=== PATIENT | female | born 1980 | race Caucasian/White ===

== ENCOUNTER 2016-10-12 00:37 | Emergency (ER) | payer OTHER ==
[~2016-10-12] VITALS: Ht 167.6 cm
[~2016-10-12 00:37] MED LIST: AURALGAN 15 ML15 ML OT; HYDROCODONE BIT1 T11 PO; OMNICEF300 MG PO; TOBRADEX 0.1%-2.5 ML OT; TYLENOL PM 5001 CAP; [UNRECOGNIZED DRUG - OTHER] OT
[2016-10-12] MEDS ORDERED: CLINDAMYCIN150 MG PO (00:48)
== END 2016-10-12 01:38 | disposition home or self-care (01) ==
LOC: ED 00:37
DX: K08.89 Other specified disorders of teeth and supporting structures (principal); Z98.51 Tubal ligation status; Z88.0 Allergy status to penicillin

== ENCOUNTER → 2017-11-03 | Outpatient (CLI) | payer OTHER ==
[~2017-11-03] MED LIST changes: +CLINDAMYCIN150 MG PO
== END | disposition home or self-care (01) ==
LOC: RAD 00:30
DX: R05 Cough (principal); R09.89 Other specified symptoms and signs involving the circulatory and respiratory systems; R06.02 Shortness of breath

== ENCOUNTER 2018-01-06 20:50 | Inpatient (IN) | payer OTHER ==
[~2018-01-06] VITALS: Ht 167.6 cm; Wt 158.8 kg
--- NOTE | ~2018-01-06 | PR ---
[place], [place] PROGRESS NOTE NAME: MILDRED NEFF UNIT #: [id number] ROOM: 528 DOCTOR: NEO BENTON MD,YARELIS BIRTHDATE: [birth year] DOS: 01/08/2018 SUBJECTIVE: The patient was noted without any acute distress at this time, comfortably resting on the bed. She was still noted with severe cough, which remains persistent and unchanged as previously. She was n.p.o. past midnight bronchoscopy. Denies any abdominal pain, nausea, vomiting, hematuria, suprapubic pain or lower back pain. Denies dizziness or headache. Remaining systems were reviewed and they were noted negative. OBJECTIVE: VITAL SIGNS: This morning, normal temperature was recorded. The respiratory rate of the patient recorded as 21-24, heart rate of 123-120 with sinus tachycardia, blood pressure 162/89-141/75. Pulse oxygen saturation of the patient was recorded as 94% saturation on 2 L nasal cannula. HEENT: Shows head was atraumatic. Eyes nonicterus. Moderate chronic obesity. CARDIOVASCULAR: S1, S2 is audible. LUNGS: Noted diffuse reduction in the breath sounds with expiratory wheezing. There were no crackles. ABDOMEN: Soft, nontender. Bowel sounds present. EXTREMITIES: Without any acute edema. VISIBLE SKIN: No lesions or rashes. MUSCULOSKELETAL SYMPTOMS: Without any acute deformities. CENTRAL NERVOUS SYSTEM: No focal deficit. LABORATORY DATA: CBC on 01/08/2018; WBC count 20.0, hemoglobin normal, hematocrit normal, platelet count 421,000. The CMP of the patient this morning; glucose 134, BUN 14, creatinine was normal. The urine culture noted no bacterial growth. IMPRESSION: 1. Ongoing severe acute exacerbation of chronic obstructive pulmonary disease/bronchial asthma. The patient with acute persistent bronchitis with nonproductive cough. 2. Chronic obesity. 3. Sinus tachycardia secondary exacerbation of chronic obstructive pulmonary disease/bronchial asthma. PLAN OF MANAGEMENT: Proceed with bronchoscopy as planned for this patient at this time. No changes in the treatment immediately will be needed. The treatment changes will be made for the patient based on the progression of the illness and after bronchoscopy as needed. Other supportive therapy, plan of management and care plan. Usual medical management and other therapies. [place], [place] PROGRESS NOTE NAME: MILDRED NEFF UNIT #: [id number] ROOM: 528 DOCTOR: YARELIS PIPER MD BIRTHDATE: [birth year] YARELIS LARSON MD CM:PNTRANS [phone] YARELIS BENTON MD 01/09/18210 interface
--- NOTE | ~2018-01-06 | PROC NOTE ---
[place], [place] PROCEDURE NOTE NAME: MILDRED NEFF UNIT #: [id number] ROOM: 528 DOCTOR: NEO BENTON MD,YARELIS BIRTHDATE: [birth year] DOS: 01/08/2018 BRONCHOSCOPY PREOPERATIVE DIAGNOSES: Severe nonresolving cough with wheezing for several weeks, the patient had current maximum medical therapy as well. POSTOPERATIVE DIAGNOSES: Severe acute bronchitis noted with diffuse inflammatory changes of the airways with redness with scattered amount of secretion removed from the endobronchial tree bilaterally. PROCEDURE DESCRIPTION: Informed consent obtained from the patient. The patient was brought to the OR and placed in a supine position. Conscious sedation administered by the Anesthesia Department. After achieving appropriate sedation, airway introduced into the mouth. Bronchoscope advanced through airway into the laryngeal area. Epiglottis and vocal cords were seen. Vocal cord moving symmetrically with movements. Bronchoscope advanced through the vocal cord into tracheal lumen. Tracheal lumen noted with diffuse inflammatory changes and redness. The yoselyn was noted sharp. Right upper, right middle, right lower, left upper, lingular lower lobe bronchi were all examined. The patient was still noticed with diffuse inflammatory changes on the airways with small amount of secretion present in the lower lobe bronchi bilaterally. The bronchial washings were taken of the endobronchial tree bilaterally ad were sent for the culture. The procedure was well tolerated by the patient without difficulty. Postoperative finding will be discussed with the patient recovers the effects of acute sedation. Based on the bronchoscopy of the patient, the patient will be started on the doxycycline 100 mg b.i.d. for coverage of the atypical organisms including the possibility of MRSA. The patient will be continued on the Rocephin as previously 1 g daily. Continue current dose of Solu-Medrol as well. YARELIS LARSON MD CM:PROCNOTE:PROCEDURE NOTE 1200 [id number] YARELIS BENTON MD
--- NOTE | ~2018-01-06 | CON ---
[place], [place] REPORT OF CONSULTATION NAME: MILDRED NEFF UNIT #: [id number] ROOM: 528 DOCTOR: YARELIS PIPER MD BIRTHDATE: [birth year] DOS: 01/07/2018 PULMONARY CONSULTATION EVALUATION. CONSULTATION REQUESTED BY: Hospitalist services. REASON FOR CONSULTATION: Assess the patient for ongoing acute respiratory symptoms. HISTORY OF PRESENT ILLNESS: A 37-year-old female patient, unknown to me, has been admitted to the hospital on 01/06/2018. The patient stated that she has been noted ill since 08/2017. She started with progressive cough, chest congestion, wheezing, and shortness of breath. The symptoms had not been improving with the previous treatment provided as an outpatient. She came into the hospital and admitted to the hospital yesterday for further medical management. The shortness of breath has been noted with mild exertion. The cough has been noted severe and remains nonproductive. Wheezing with excessive chest tightness reported. There were no symptoms of chest pain. Coughing has been noted day and night, and very excessive. The patient denies symptoms of chest trauma. REVIEW OF SYSTEMS: CONSTITUTIONAL: Fatigue and tiredness reported and symptoms of fever or chills. EYES: Denies any burning, redness, or tenderness. EARS, NOSE, THROAT SYMPTOMS: Denies sore throat, hoarseness, otalgia, postnasal drainage or epistaxis. CARDIOVASCULAR: No anginal pain, edema, pain in the lower extremities or palpitation. GASTROINTESTINAL: Dysphagia, nausea, vomiting, diarrhea, abdominal pain, hematemesis, melena, or hematochezia. SKIN: Denies abnormal lesions or rashes. MUSCULOSKELETAL: Denies any acute joint pain, redness, or tenderness. CENTRAL NERVOUS SYSTEM: Dizziness, headache, diplopia, syncopal episode, tingling sensation in the extremities. SKIN: Denies abnormal lesions or rashes. Remaining systems were reviewed with the patient, they were noted all negative. PAST MEDICAL HISTORY: 1. Gastroesophageal reflux disease. 2. Severe morbid obesity. SURGICAL HISTORY: 1. Tubal ligation. 2. Cholecystectomy. 3. Extraction of the teeth. SOCIAL HISTORY: The patient lives at home. She has not been noted any history of tobacco and alcohol or any illicit drugs. Tobacco use was noted only a few cigarettes smoked a day for several years, which were discontinued completely [place], [place] REPORT OF CONSULTATION NAME: MILDRED NEFF UNIT #: [id number] ROOM: 528 DOCTOR: NEO BENTON MD,YARELIS BIRTHDATE: [birth year] since 08/2017. FAMILY HISTORY: Noted diabetes and hypertension in the father and hypertension in the mother. HOME MEDICATIONS: Noted only use of Prilosec 20 mg daily. DRUG ALLERGIES: Reported allergies to the PENICILLIN. PHYSICAL EXAMINATION: GENERAL: This is a 37-year-old female who has been noted to be awake and alert at this time without any acute distress currently comfortably sitting on the bed. VITAL SIGNS: The patient's height was recorded by the nursing staff on current admission 5 feet 6 inches, weight of 250 pounds, BMI of 56.5. VITAL SIGNS: Shows normal temperature. The respiratory rate recorded as 20, heart rate of 107, blood pressure of 122/52. HEENT: Atraumatic. Eyes nonicterus. NECK: Supple. Severe decreased posterior pharyngeal space noted high tongue base crowding soft tissue structures. LUNGS: Diffuse expiratory wheezing noted in the lungs bilaterally, which was severe. There were no crackles heard. ABDOMEN: Soft with chronic moderate severe obesity. Bowel sounds are present. EXTREMITIES: The patient noted chronic obesity. Visible skin with no lesions or rashes. MUSCULOSKELETAL: Noted without any acute deformities. SKIN: Noted without lesions or rashes. Cranial nerves 2-12 intact. No focal deficit. LABORATORY DATA: CBC that was done on 01/06/2018 was noted as normal CBC. Lactic acid 1.7 yesterday. Arterial blood gas 01/06/2018 on admission pH of 7.36, pCO2 of 49, pO2 of 75 on 6 liter nasal cannula. PT and PTT for the patient was noted as normal. CMP that was noted as glucose 139, BUN normal, and creatinine was normal. Troponin was normal. D-dimer was normal. CBC that was done this morning still remains normal. BMP this morning, glucose 257, BUN and creatinine were normal. Chest x-ray of the patient that was done, 2-view, which was reviewed this morning was noted with a nonspecific interstitial increased marking without any acute pulmonary infiltration. Influenza A and B, nasal washing antigen both noted negative. CT scan of the chest reviewed, does not show any lymphadenopathy. Small nodular infiltration noted in the left lower lobe. Increased interstitial marking noted with the ____ in the lungs bilaterally. IMPRESSION: 1. The patient will be currently admitted to the hospital with ongoing acute exacerbation of bronchial asthma with small airway disease, bronchiolitis as well as possibility of pneumonia or rounded atelectasis and nodule noted in the left lower lobe. 2. History of chronic obesity. 3. Hyperglycemia secondary to corticosteroids. [place], [place] REPORT OF CONSULTATION NAME: MILDRED NEFF UNIT #: [id number] ROOM: 528 DOCTOR: YARELIS PIPER MD BIRTHDATE: [birth year] 4. The patient with severe morbid obesity as well. PLAN OF MANAGEMENT: The patient is currently getting bronchodilator, which we will continue 4 hours. Solu-Medrol has been currently given 80 mg hours, which will be decreased to the lower dose as the high dose would not be needed at the present time. Monitoring of the respiratory symptoms closely with progression. The patient was assessed for possible bronchoscopy, which planned to be done in the morning to help clear mucus impaction of major airways. Risk and benefits of procedure have been discussed with the patient. She was agreeable for the procedure. Bronchodilator will be given every 4 hours. Continue abstinence tobacco use was advised. Additional treatment changes will be done based on progression of the illness. The finding noted in the CT scan needs to be closely monitored until resolution. BAL specimen might be taken from the left lower lobe as well for this patient. Continue atypical coverage of organisms. Ordered the mycoplasma antibodies. Thanks for allowing me to participate in the care of this patient. YARELIS LARSON MD CM:CONSTR:REPORT OF CONSULTATION 1313 01/07/18 1602 interface
--- NOTE | ~2018-01-06 | EKG ---
[place], [place] ELECTROCARDIOGRAM REPORT NAME: MILDRED NEFF UNIT #: [id number] ROOM: 528 DOCTOR: NEO BENTON MD,YARELIS BIRTHDATE: [birth year] DOS: 01/07/2018 ELECTROCARDIOGRAM The testing was done for 01/07/2018 done at 12:50 p.m. Sinus tachycardia noted, heart rate 119 beats per minute. The electrocardiogram was noted as normal. YARELIS LARSON MD CM:EKGRPT:ELECTROCARDIOGRAM REPORT [id number] YARELIS BENTON MD
--- NOTE | ~2018-01-06 | PR ---
[place], [place] PROGRESS NOTE NAME: [facility] NEFF [id number] UNIT #: [id number] ROOM: 528 DOCTOR: NEO BENTON MD,YARELIS BIRTHDATE: [birth year] DOS: 01/09/2018 SUBJECTIVE: The patient was noted comfortable at this time, resting in the bed. She has not been reported any symptoms of chest pain or hemoptysis. Cough has been noted partially decreased after bronchoscopy. Denies symptoms of headache or diplopia. Denies symptoms of nausea or vomiting. Denies dizziness. General weakness, fatigue was noted. There were no symptoms of chills. Remaining systems were reviewed. They were noted all negative. OBJECTIVE: VITAL SIGNS: Normal temperature, respiratory rate 20, heart 94 to 142 previously. The blood pressure 117/51 to 151/82. Pulse oxygen saturation 3 liters 94% saturation. HEENT: Showed no acute change. NECK: Supple, obese. CARDIOVASCULAR SYSTEM: S1, S2 is audible. LUNGS: Noted with moderate decreased breath sounds, scattered wheezing, no crackles. ABDOMEN: Soft and obese. EXTREMITIES: Chronic obesity with skin no lesions or rashes. MUSCULOSKELETAL: Noted without any acute deformities. SKIN: Noted without lesions or rashes. LABORATORY DATA: CMP, this morning, glucose of 150, BUN and creatinine were normal. CO2 of 33. CBC: WBC count 14.3, normal hemoglobin and hematocrit, platelet count mildly elevated at 136,000. Echocardiogram that was done for the patient reviewed by the radiologist and dictated by Dr. Garcia for this patient reported as findings of normal left ventricle ejection fraction. The patient technically suboptimal images without any valvular abnormalities reported. Culture of the bronchial washing of the patient from yesterday was noted with moderate growth of gram-positive cocci, suspected MRSA. Gram stain many white blood cells, moderate epithelial cells, few gram-positive cocci in pairs, chains and clusters, few gram-negative bacilli. IMPRESSION: 1. The patient with severe acute inflammatory changes noted airway bronchoscopy with ongoing acute tracheobronchitis, possibly methicillin-resistant staphylococcus aureus would be considered. 2. The patient with chronic obesity as well. 3. The patient with tachycardia related to current acute infection subsiding as the patient started on doxycycline yesterday for methicillin-resistant staphylococcus aureus, tracheobronchitis. PLAN OF TREATMENT: Continue Rocephin at this time. Monitor final culture results. Continue bronchodilator. Other therapy, plan of management. Additional change in treatment will be made for the patient based on progression of illnesses. [place], [place] PROGRESS NOTE NAME: AISHWARYAMILDRED UNIT #: [id number] ROOM: 8 DOCTOR: YARELIS PIPER MD BIRTHDATE: [birth year] YARELIS LARSON MD CM:PNTRANS [phone] [id number] YARELIS BENTON MD 01/09/181929 interface
--- NOTE | ~2018-01-06 | PR ---
[place], [place] PROGRESS NOTE NAME: MILDRED NEFF UNIT #: [id number] ROOM: 528 DOCTOR: NEO BENTON MD,YARELIS BIRTHDATE: [birth year] DOS: 01/10/2018 SUBJECTIVE: The patient was independently seen and examined. History and physical examination performed. The available labs were reviewed. The assessment of the patient was personally made changes in the treatment was personally approved. The note done by the claim review medical director approved. Cultures of the sputum for the patient's bronchial washing was noted nonviable organism with moderate gram-positive cocci were noted. The patient has been noted resolution of the wheezing and significant improvement in the cough was noted with the history and physical examination. She could be discharged home. The patient to be followed up on tapering dose of prednisone, oral doxycycline prescription, use of short-acting bronchodilator for addition, comprehensive pulmonary assessment as an outpatient. Discharge planning was discussed with Dr. Sachin Denis for the patient with the primary care attending. YARELIS LARSON MD CM:PNTRANS [phone] YARELIS BENTON MD 01/10/18 1906 interface
--- NOTE | ~2018-01-06 | EKG ---
[place], [place] ELECTROCARDIOGRAM REPORT NAME: MILDRED NEFF UNIT #: [id number] ROOM: 528 DOCTOR: AMPARO SMITH,KIERA BIRTHDATE: [birth year] DOS: 01/07/2018 TIME: 9:08 IMPRESSION: 1. Sinus rhythm. 2. Sinus tachycardia. 3. Normal QT interval. 4. No ischemic changes. KIERA CHRISTENSEN MD CM:EKGRPT:ELECTROCARDIOGRAM REPORT [id number] KIERA CHRISTENSEN MD
--- NOTE | ~2018-01-06 | PR ---
[place], [place] PROGRESS NOTE NAME: MILDRED NEFF UNIT #: [id number] ROOM: 528 DOCTOR: PRIYANKA RAO DO BIRTHDATE: [birth year] DOS: 01/10/2018 SUBJECTIVE: The patient is feeling very well at this time. She notes a near complete resolution of her respiratory symptoms and feels she is very nearly at her baseline. She has no complaints. She denies any chest pain, shortness of breath, nausea, vomiting, diarrhea, constipation, lightheadedness, dizziness or any other symptoms at this time. OBJECTIVE: VITAL SIGNS: At time of exam, temperature 98.2, pulse 93, respiratory rate 20, blood pressure 142/80, pulse ox 97% on room air. GENERAL APPEARANCE: Alert, awake, in no acute distress, responsive, cooperative. HEAD: Normocephalic, atraumatic. EYES: No lesion. No ulceration. Nonicteric. No drainage. ENT: No lesions. No scars. No masses. Nares patent. Oropharynx is clear. Oral mucosa moist. No pharyngeal exudate. No pharyngeal erythema. NECK: Without lesion, without mass. No ulceration. Trachea midline. CARDIAC: Regular rate and rhythm with no gallop, no murmur, no rub appreciated. No edema in the bilateral lower extremities appreciated. LUNGS: Clear to auscultation bilaterally. No rales, rhonchi or wheezing. No stridor. No pleural rub. ABDOMEN: Soft, positive bowel sounds, nontender, nondistended. No organomegaly noted. Obese abdomen as well. EXTREMITIES: No clubbing. No cyanosis. No erythema. No edema. NEUROLOGIC: Grossly intact without focal neuro deficits. Sensation grossly intact, ambulates well. PSYCHIATRIC: Good historian. Fair judgment and insight and good recent memory, good remote memory, exhibits normal mood, exhibits normal affect. SKIN: Warm and dry. No rash, no ulceration, no lesion, no induration noted. LABORATORY AND DIAGNOSTIC DATA: Results of bronch washing culture does show moderate GPCs and the organism isolated is indicated as moderate beta Streptococcus, not group A, B, C, D, F or G. However, the organism is nonviable upon susceptibility testing. Fungal culture is negative and the gram stain does not show anything specific. IMPRESSION: 1. Severe acute inflammatory changes noted on bronchoscopy with acute tracheobronchitis. Bacteria isolated seems to be beta Streptococcus, but no susceptibility testing was able to be obtained. 2. Chronic morbid obesity. 3. Resolved acute respiratory failure with hypoxia and hypercapnia. PLAN OF TREATMENT: The patient is cleared from pulmonary standpoint and can be discharged on a prednisone taper and doxycycline p.o. She should follow up with Dr. Larson in the office in 2-3 weeks. [place], [place] PROGRESS NOTE NAME: MILDRED NEFF UNIT #: [id number] ROOM: 528 DOCTOR: PRIYANKA RAO DO BIRTHDATE: [birth year] PRIYANKA RAO DO YARELIS LARSON MD CM:[place] [id number] PRIYANKA RAO DO 01/10/181899 interface
[2018-01-06 20:50] VITALS: BP 175/120
[2018-01-06 21:15] VITALS: BP 141/85
[2018-01-06 21:40] VITALS: BP 154/89
[2018-01-06 21:50] LABS: BASO # 0.1 10*3/uL (0.0-0.1); BASO % 0.6 % (0.0-1.0); EOS # 0.3 10*3/uL (0.0-0.4); EOS % 3.4 % (1.0-4.0); HEMATOCRIT 41.9 % (37.0-47.0); HEMOGLOBIN 12.8 g/dl (12.0-16.0); LYMPH # 1.3 10*3/uL (1.3-4.4); LYMPH % 12.7 % (27.0-41.0); MEAN CELL VOLUME 88.4 fl (81.0-99.0); MEAN CORPUSCULAR HGB CONC 30.5 g/dl (33.0-37.0); MEAN PLATELET VOLUME 9.6 fl (9.6-12.3); MONO # 0.6 10*3/uL (0.1-1.0); MONO % 6.3 % (3.0-9.0); NEUT # 7.7 10*3/uL (2.3-7.9); NEUT % 76.5 % (47.0-73.0); PLATELET COUNT AUTOMATED 327 10*3/uL (130-400); RED BLOOD COUNT 4.74 10*6/uL (4.10-5.10); RED CELL DISTRI WIDTH 14.2 % (0-14.5); WHITE BLOOD COUNT 10.1 10*3/uL (4.8-10.8)
[2018-01-06 21:59] LABS: ABG BASE EXCESS 1.8 mmol/L (-2.0-2.0); ABG HCO3 27.5 mmol/l (22-26); ABG O2 SATURATION 94.4 % (95-97); ARTERIAL BLOOD GAS PCO2 49.3 mmHg (35-45); ARTERIAL BLOOD GAS PH 7.363 (7.35-7.45); ARTERIAL BLOOD GAS PO2 75.2 mmHg (80-90)
[2018-01-06 22:00] LABS: ACT PARTIAL THROMBO TIME 23.1 SECONDS (20.8-31.5); INTERNATIONAL NORM RATIO 0.9 (2.0-3.5)
[2018-01-06 22:03] LABS: BILIRUBIN NEGATIVE (NEGATIVE); BLOOD NEGATIVE (NEGATIVE); CLARITY CLEAR (CLEAR); COLOR YELLOW (YELLOW); GLUCOSE NEGATIVE (NEGATIVE); KETONE NEGATIVE (NEGATIVE); LEUKO ESTERASE NEGATIVE (NEGATIVE); NITRITE NEGATIVE (NEGATIVE); UROBILINOGEN 0.2 E.U./dl (0.2-1.0)
[2018-01-06 22:06] LABS: ALBUMIN 3.3 gm/dl (3.1-4.5); ALKALINE PHOSPHATASE 107 U/L (45-117); BUN 15 mg/dl (7-24); CHLORIDE 104 mmol/L (98-107); CREATININE 0.86 mg/dL (0.55-1.02); LIPASE 95 U/L (73-393); POTASSIUM 4.1 mmol/L (3.5-5.1); SGOT/AST 29 IU/L (3-35); SGPT/ALT 27 U/L (12-78); SODIUM 138 mmol/L (136-145); TOTAL PROTEIN 7.5 gm/dL (6.4-8.2)
[2018-01-06 22:07] LABS: TROPONIN I < 0.015 ng/ml (<0.045)
[2018-01-06 22:11] LABS: BACTERIA 2+; RBC 0-2 rbc/hpf (0-2)
[2018-01-06 22:33] VITALS: BP 135/70
[2018-01-06 23:31] VITALS: BP 147/90
[2018-01-06] MEDS ORDERED: OMEPRAZOLE D/R20 MG PO (23:41)
[2018-01-07 04:49] LABS: HEMOGLOBIN 12.3 g/dl (12.0-16.0); MEAN CELL VOLUME 90.3 fl (81.0-99.0); MEAN CORPUSCULAR HGB 27.1 pg (27.0-31.0); MEAN PLATELET VOLUME 9.7 fl (9.6-12.3); PLATELET COUNT AUTOMATED 322 10*3/uL (130-400); RED BLOOD COUNT 4.54 10*6/uL (4.10-5.10); RED CELL DISTRI WIDTH 14.2 % (0-14.5); WHITE BLOOD COUNT 10.4 10*3/uL (4.8-10.8)
[2018-01-07 05:12] LABS: BASOPHILS 1 % (0-1); PLATELET SUFFICIENCY NORMAL (NORMAL); TOTAL CELLS COUNTED 100 #CELLS
[2018-01-07 05:22] LABS: BUN 14 mg/dl (7-24); CHLORIDE 103 mmol/L (98-107); CHOLESTEROL 185 mg/dL (<200); CREATININE 1.02 mg/dL (0.55-1.02); FREE T4 0.86 ng/dl (0.76-1.46); HDL CHOLESTEROL 58 mg/dl (40-60); LDL CHOLESTEROL 102 mg/dL (9-159); PHOSPHOROUS 2.6 mg/dL (2.5-4.9); POTASSIUM 3.9 mmol/L (3.5-5.1); SODIUM 139 mmol/L (136-145); TRIGLYCERIDES 124 mg/dl (<150); VLDL CHOLESTEROL 25 mg/dL (6-40)
[2018-01-07 05:28] LABS: THYROID STIM HORMONE (HS) 0.397 uIU/ml (0.358-4.75)
[2018-01-07 07:55] LABS: VITAMIN D, 25-HYDROXY 15.4 ng/mL (30-100)
[2018-01-07 08:00] VITALS: BP 122/57
[2018-01-07 12:00] VITALS: BP 135/82
[2018-01-07 16:00] VITALS: BP 130/60
[2018-01-07 20:00] VITALS: BP 133/56
[2018-01-08] VITALS (9 sets, daily range): BP systolic 105–162; BP diastolic 51–89
[2018-01-08 06:38] LABS: HEMATOCRIT 44.4 % (37.0-47.0); HEMOGLOBIN 13.1 g/dl (12.0-16.0); MEAN CELL VOLUME 91.5 fl (81.0-99.0); MEAN CORPUSCULAR HGB CONC 29.5 g/dl (33.0-37.0); MEAN PLATELET VOLUME 10.1 fl (9.6-12.3); RED BLOOD COUNT 4.85 10*6/uL (4.10-5.10); RED CELL DISTRI WIDTH 14.8 % (0-14.5)
[2018-01-08 06:46] LABS: PLATELET COUNT AUTOMATED 421 10*3/uL (130-400)
[2018-01-08 06:51] LABS: ALBUMIN 3.2 gm/dl (3.1-4.5); ALKALINE PHOSPHATASE 104 U/L (45-117); BUN 14 mg/dl (7-24); CHLORIDE 107 mmol/L (98-107); CREATININE 0.74 mg/dL (0.55-1.02); POTASSIUM 4.3 mmol/L (3.5-5.1); SGOT/AST 18 IU/L (3-35); SGPT/ALT 25 U/L (12-78); SODIUM 146 mmol/L (136-145); TOTAL PROTEIN 7.7 gm/dL (6.4-8.2)
[2018-01-08 08:00] LABS: PLATELET SUFFICIENCY HIGH (NORMAL); TOTAL CELLS COUNTED 100 #CELLS
[2018-01-09 06:46] LABS: BASO % 0.3 % (0.0-1.0); HEMATOCRIT 44.3 % (37.0-47.0); HEMOGLOBIN 13.2 g/dl (12.0-16.0); LYMPH # 0.5 10*3/uL (1.3-4.4); LYMPH % 3.6 % (27.0-41.0); MEAN CELL VOLUME 90.6 fl (81.0-99.0); MEAN CORPUSCULAR HGB CONC 29.8 g/dl (33.0-37.0); MEAN PLATELET VOLUME 9.8 fl (9.6-12.3); MONO # 0.8 10*3/uL (0.1-1.0); MONO % 5.5 % (3.0-9.0); NEUT # 12.7 10*3/uL (2.3-7.9); NEUT % 88.9 % (47.0-73.0); PLATELET COUNT AUTOMATED 436 10*3/uL (130-400); RED BLOOD COUNT 4.89 10*6/uL (4.10-5.10); RED CELL DISTRI WIDTH 14.8 % (0-14.5); WHITE BLOOD COUNT 14.3 10*3/uL (4.8-10.8)
[2018-01-09 07:02] LABS: ALBUMIN 3.4 gm/dl (3.1-4.5); BUN 18 mg/dl (7-24); CHLORIDE 104 mmol/L (98-107); CREATININE 0.78 mg/dL (0.55-1.02); POTASSIUM 4.6 mmol/L (3.5-5.1); SGOT/AST 37 IU/L (3-35); SGPT/ALT 29 U/L (12-78); SODIUM 142 mmol/L (136-145)
[2018-01-09 07:04] LABS: TOTAL PROTEIN 7.8 gm/dL (6.4-8.2)
[2018-01-09 07:05] LABS: ALKALINE PHOSPHATASE 106 U/L (45-117)
[2018-01-09 08:00] VITALS: BP 151/82
[2018-01-09 12:00] VITALS: BP 127/80
[2018-01-09 16:00] VITALS: BP 128/84
[2018-01-09 20:00] VITALS: BP 131/64
[2018-01-10] VITALS: BP 116/64
[2018-01-10 08:00] VITALS: BP 142/80
[2018-01-10 09:07] LABS: MYCOPLASMA PNEUMONIAE IGG 697 U/mL (0-99); MYCOPLASMA PNEUMONIAE IGM <770 U/mL (0-769)
[2018-01-10] MEDS ORDERED: DOXYCYCLINE MO100 M1 PO (09:57)
[2018-01-10] MEDS ORDERED: TEMAZEPAM15 M1 PO (09:57)
[2018-01-10] MEDS ORDERED: MUCINEX ER600 MG PO (09:57)
[2018-01-10] MEDS ORDERED: OMEPRAZOLE D/R20 MG PO (09:57)
[2018-01-10] MEDS ORDERED: VITAMIN D-32000 UNIT PO (09:57)
[2018-01-10] MEDS ORDERED: PROAIR HFA8.5 GM INH (09:58)
[2018-01-10] MEDS ORDERED: PREDNISONE10 MG PO (09:58)
== END 2018-01-10 11:13 | disposition home or self-care (01) | DRG 871 ==
LOC: ED 20:50 → 5E 22:23 → EDHOLD 22:23 → 5E 22:34
PROVIDERS: Emergency Medicine; Internal Medicine; Internal Medicine Critical Care Medicine; Nurse Practitioner Family; Student in an Organized Health Care Education/Training Program
PROC: 0BC68ZZ Extirpation of Matter from Right Lower Lobe Bronchus, Via Natural or Artificial Opening Endoscopic (ICD-10-PCS; principal; 2018-01-08)
PROC: 0BC78ZZ Extirpation of Matter from Left Main Bronchus, Via Natural or Artificial Opening Endoscopic (ICD-10-PCS; principal; 2018-01-08)
PROC: 0BC48ZZ Extirpation of Matter from Right Upper Lobe Bronchus, Via Natural or Artificial Opening Endoscopic (ICD-10-PCS; principal; 2018-01-08)
PROC: 0BC88ZZ Extirpation of Matter from Left Upper Lobe Bronchus, Via Natural or Artificial Opening Endoscopic (ICD-10-PCS; principal; 2018-01-08)
PROC: 0BC58ZZ Extirpation of Matter from Right Middle Lobe Bronchus, Via Natural or Artificial Opening Endoscopic (ICD-10-PCS; principal; 2018-01-08)
PROC: 0BC18ZZ Extirpation of Matter from Trachea, Via Natural or Artificial Opening Endoscopic (ICD-10-PCS; principal; 2018-01-08)
PROC: 0BC98ZZ Extirpation of Matter from Lingula Bronchus, Via Natural or Artificial Opening Endoscopic (ICD-10-PCS; principal; 2018-01-08)
PROC: 0BC38ZZ Extirpation of Matter from Right Main Bronchus, Via Natural or Artificial Opening Endoscopic (ICD-10-PCS; principal; 2018-01-08)
PROC: 0BCB8ZZ Extirpation of Matter from Left Lower Lobe Bronchus, Via Natural or Artificial Opening Endoscopic (ICD-10-PCS; principal; 2018-01-08)
DX: A41.9 Sepsis, unspecified organism (principal); J18.9 Pneumonia, unspecified organism; J96.01 Acute respiratory failure with hypoxia; J96.02 Acute respiratory failure with hypercapnia; J44.0 Chronic obstructive pulmonary disease with (acute) lower respiratory infection; T17.590A Other foreign object in bronchus causing asphyxiation, initial encounter; E66.01 Morbid (severe) obesity due to excess calories; J45.51 Severe persistent asthma with (acute) exacerbation; J44.1 Chronic obstructive pulmonary disease with (acute) exacerbation; Z68.43 Body mass index [BMI] 50.0-59.9, adult; X58.XXXA Exposure to other specified factors, initial encounter; E11.65 Type 2 diabetes mellitus with hyperglycemia; T38.0X5A Adverse effect of glucocorticoids and synthetic analogues, initial encounter; K21.9 Gastro-esophageal reflux disease without esophagitis; K08.409 Partial loss of teeth, unspecified cause, unspecified class; J20.9 Acute bronchitis, unspecified; E55.9 Vitamin D deficiency, unspecified; Z87.891 Personal history of nicotine dependence; Z88.0 Allergy status to penicillin; Z79.2 Long term (current) use of antibiotics; Z79.899 Other long term (current) drug therapy; Z98.51 Tubal ligation status; Z90.49 Acquired absence of other specified parts of digestive tract; Z83.3 Family history of diabetes mellitus; Z82.49 Family history of ischemic heart disease and other diseases of the circulatory system; Y92.89 Other specified places as the place of occurrence of the external cause; Y93.89 Activity, other specified; Y99.8 Other external cause status

== ENCOUNTER → 2018-02-11 | Outpatient (CLI) | payer OTHER ==
[~2018-02-11] MED LIST changes: +DOXYCYCLINE MO100 M1 PO; +MUCINEX ER600 MG PO; +OMEPRAZOLE D/R20 MG PO; +PREDNISONE10 MG PO; +PROAIR HFA8.5 GM INH; +TEMAZEPAM15 M1 PO; +VITAMIN D-32000 UNIT PO
== END | disposition home or self-care (01) ==
LOC: RAD 02:06
DX: J40 Bronchitis, not specified as acute or chronic (principal); J18.9 Pneumonia, unspecified organism

== ENCOUNTER → 2018-02-13 | Outpatient (CLI) | payer OTHER ==
--- NOTE | ~2018-02-13 | PF ---
[place], [place] PULMONARY FUNCTION TEST NAME: MILDRED NEFF UNIT #: [id number] ROOM: DOCTOR: YARELIS PIPER MD BIRTHDATE: [birth year] DOS: 02/13/2018 The test was ordered from the office. HISTORY: This is a 37-year-old female, height of 66 inches, weight 250 pounds. The patient with symptoms of shortness of breath, with nonproductive cough and frequent wheezing. Tobacco use was noted as one-third of pack of cigarettes per day, active use for 15 years. SPIROMETRY: The FVC was recorded as 3.01 liters, 75% predicted value, FEV1 2.30 liters, 70% predicted value, both noted mildly decreased. Ratio of FEV1/FVC recorded 83%. Post-bronchodilator, no improvement for the patient noted of clinical significance. Flow volume was suggestive of mild obstructive airway pattern. LUNG VOLUMES: Thoracic gas volume recorded as 72%, residual volume 123%, total lung capacity 91%. RV/TLC ratio 140%. Lung volumes suggest mild air trapping secondary to obstructive lung disease. The patient's lung diffusion noted normal at 98%. The patient's airway resistance and passive conductance are noted normal. IMPRESSION: The patient would be considered with mild obstructive lung disease with current pulmonary function test. YARELIS LARSON MD CM:PFREPORT:PULMONARY FUNCTION TEST [id number] YARELIS BENTON MD
== END | disposition home or self-care (01) ==
LOC: CP 07:47
DX: R06.02 Shortness of breath (principal)

== ENCOUNTER → 2018-03-16 | Outpatient (CLI) | payer OTHER ==
[~2018-03-16] MED LIST changes: +ARNUITY ELLIP200 MCG INH; +Motrin,Rufen800 MG PO; +PERCOCET 5-3251 EACH PO; +SINGULAIR10 M1 PO; +TESSALON PERLE100 MG PO
[2018-03-18 18:03] LABS: IGG SUBCLASS 1 413 mg/dL (248-810); IGG SUBCLASS 2 316 mg/dL (130-555); IGG SUBCLASS 3 76 mg/dL (15-102); IGG SUBCLASS 4 17 mg/dL (2-96); IMMUNOGLOBULIN G, QNT 788 mg/dL (700-1600)
[2018-03-19 12:06] LABS: IMMUNOGLOBULIN IgE 002170 911 IU/mL (0-100)
[2018-03-19 14:10] LABS: ANTI-DSDNA ANTIBODIES 096339 1 IU/mL (0-9); ANTI-RNP ANTIBODIES 0.3 AI (0.0-0.9); ANTICHROMATIN ANTIBODIES <0.2 AI (0.0-0.9); ANTISCLERODERMA-70 AB 0.3 AI (0.0-0.9); ATYPICAL PANCA <1:20 titer (Neg:<1:20); CYTOPLASMIC (C-ANCA) <1:20 titer (Neg:<1:20); SJOGREN ANTI-SS-A <0.2 AI (0.0-0.9); SJOREN AB, ANTI-SS-B <0.2 AI (0.0-0.9)
[2018-03-19 16:07] LABS: ANGIOTENSIN-CONVERTING ENZYME 35 U/L (14-82)
[2018-03-19 18:03] LABS: BLASTOMYCES ANTIBODY Negative (Neg:<1:1)
== END | disposition home or self-care (01) ==
LOC: LAB 01:53 → CT 01:53
PROVIDERS: Internal Medicine Critical Care Medicine
DX: R91.1 Solitary pulmonary nodule (principal); J84.9 Interstitial pulmonary disease, unspecified

== ENCOUNTER 2018-03-19 04:42 | Inpatient (IN) | payer OTHER ==
[~2018-03-19] VITALS: Ht 167.6 cm; Wt 158.8 kg
[2018-03-19] VITALS (8 sets, daily range): BP systolic 114–154; BP diastolic 49–89
--- NOTE | ~2018-03-19 | CON ---
[place], [place] REPORT OF CONSULTATION [id number] UNIT #: [id number] ROOM: 530 DOCTOR: YARELIS PIPER MD BIRTHDATE: [birth year] DOS: 03/19/2018 PULMONARY CONSULTATION EVALUATION MANAGEMENT CONSULTATION REQUESTED BY: Hospitalist Service. REASON FOR CONSULTATION: Assessment of the current acute hemoptysis. HISTORY OF PRESENT ILLNESS: This is a 37-year-old white female patient with known history of bronchial asthma. The patient has been seen in the office after recent hospitalization. The patient had a CT scan of the chest that was done as an outpatient for assessment of previous noted abnormal pulmonary filtration. She presented to the Emergency Room, and admitted to the hospital on 03/19/2018. The patient reported symptoms of having intermittent small amount of hemoptysis with cough and mucus expectoration. The patient's symptoms for the past 3-4 days has been noted persistent. The patient denies symptoms of chest pain. Denies symptoms of acute significant shortness of breath. Denies symptoms of fevers, chills with the current associated symptoms. The patient has been admitted in the hospital previously a few weeks ago and treated for bilateral pneumonia with acute respiratory failure after resolution and improvement of respiratory symptoms. She was discharged home and currently taking the medication for bronchial asthma management. REVIEW OF SYSTEMS: CONSTITUTIONAL: She does complain of symptoms of fatigue and tiredness. The patient denies symptoms of fever or chills. EYES: Denies any burning, redness, or tenderness. EARS, NOSE, THROAT SYMPTOMS: Denies sore throat, hoarseness, otalgia, postnasal drainage or epistaxis. CARDIOVASCULAR: Denies angina pain, edema or pain of the lower extremities. GASTROINTESTINAL: No dysphagia, nausea, vomiting, diarrhea, abdominal pain, hematemesis, melena, or hematochezia. GENITOURINARY: Denies hematuria, suprapubic pain or flank pain. SKIN: Denies abnormal lesions or rashes. MUSCULOSKELETAL: No acute joint pain, redness, or tenderness. SKIN: Noted without any lesions or rashes. CENTRAL NERVOUS SYSTEM: No dizziness, headache, diplopia, syncopal episodes. Remaining systems were reviewed, they were noted all negative. PAST MEDICAL HISTORY: 1. The patient was known with history of uncomplicated moderate persistent bronchial asthma. 2. Chronic severe obesity. 3. Gastroesophageal reflux. 4. Previously treated for acute pneumonia, bilateral pulmonary infiltration, fiberoptic bronchoscopy noted nonrevealing for any infection isolation. The patient was treated and improved later as an outpatient. PAST SURGICAL HISTORY: [place], [place] REPORT OF CONSULTATION NAME: MILDRED NEFF UNIT #: [id number] ROOM: [facility] DOCTOR: NEO BENTON [facility] BIRTHDATE: [birth year] 1. Tubal ligation. 2. Cholecystectomy. 3. Extraction of the teeth. 4. Therapeutic bronchoscopy that was done on 01/08/2018. SOCIAL HISTORY: The patient lives at home. Worked as a manager project management in [employer]. She has been noted with history of tobacco use, smokes few cigarettes a day with intermittent cessation. FAMILY HISTORY: Noted for diabetes, hypertension in the father, history of hypertension in the mother. MEDICATIONS: The current medication administered noted use of: 1. Protonix. 2. Solu-Medrol 40 mg q.8 hours. 3. Mucinex 1200 mg p.o. b.i.d. 4. Magnesium hydroxide. 5. Meropenem. 6. Vancomycin. 7. Temazepam. DRUG ALLERGIES: The patient noted with allergy TO PENICILLINS. PHYSICAL EXAMINATION: GENERAL: A 37-year-old female who has been noted currently awake and alert without any acute distress. VITAL SIGNS: Height of 5 feet 6 inches. The vital signs of the patient recorded as normal temperature since admission, respiratory rate 18-20, heart rate of 97-100, blood pressure 114/65-135/81. The pulse oxygen saturation of the patient recorded as 95% on 2 liter nasal cannula. An 85% noted at rest room air on admission. HEENT: Examination shows head was atraumatic. Eyes nonicterus. Decreased posterior pharyngeal space. NECK: Supple. CARDIOVASCULAR: S1, S2 audible. LUNGS: The patient was noted with [id number] decreased breath sounds in the lungs. There was no wheezing or crackles heard. ABDOMEN: Soft, nontender, bowel sounds present. EXTREMITIES: The patient was noted with chronic obesity. MUSCULOSKELETAL: Without acute deformities. SKIN: Noted without any abnormal lesions or rashes. CENTRAL NERVOUS SYSTEM: Cranial nerves 2-12 intact. LABORATORY DATA: The patient's CBC on 03/19/2018 this morning, WBC count 14.6, hemoglobin and hematocrit normal, platelet count was normal. The lactic acid noted 1.6 this morning as well. PT/PTT noted as normal this morning. CMP this morning, glucose 154, BUN 18, creatinine was normal, remaining CMP was normal. Chest x-ray that was done on 03/19/2018 shows pulmonary venous congestion marking. CT scan of the chest that was done on 03/16/2018 that I ordered without contrast was completed shows evidence of bilateral nodular infiltration [place], [place] REPORT OF CONSULTATION NAME: MILDRED NEFF UNIT #: [id number] ROOM: [facility] DOCTOR: NEO BENTON MDYARELIS BIRTHDATE: [birth year] noted in the lungs, mostly sparing the periphery of the lung. The infiltrates noted bilateral and appeared to be new for the patient as compared to the previous CT scan of the chest, which was done on 01/07/2018. IMPRESSION: 1. The patient has been currently admitted to the hospital noted with acute hemoptysis, bilateral nodular opacity with hemoptysis with the differential diagnosis could be considered as acute bacterial, viral infection with differential to be considered as acute hypersensitivity pneumonitis, acute eosinophilic pneumonia and other disorders including connective tissue disorder, resulting in hemoptysis, possibly pulmonary hemorrhage cannot be completely excluded. 2. History of morbid obesity with suspected diagnosis of sleep apnea disorder. 3. Acute hypoxic respiratory failure, secondary to current bilateral pulmonary infiltration. 4. Mild leukocytosis. The patient was also noted with possibility of infection. PLAN OF MANAGEMENT: The patient has been currently getting Solu-Medrol 40 mg q.8 hours that will be continued. She was getting broad spectrum intravenous antibiotic Levaquin, vancomycin and meropenem that might be continued until the infection is clearly excluded. Order the sputum for Gram stain and culture. The workup on infection limited available was ordered. The patient would be strongly recommended transfer to [facility] for most effective workup and diagnosis for the current acute abnormality, which are noted pulmonary related. Other supportive therapy, plan of management and care at this time to be continued. Usual care, other supportive plan of management and therapies. Additional treatment changes need to be made for the patient progression of illness as long as the patient stays in the hospital, hemoptysis amount and quantity were noted quite small for the patient does not have any concern. If the hemoptysis gets worse or increased significantly certainly immediate bronchoscopy needed, otherwise continue her other treatments. The patient was told about the current assessment and management transfer, she was agreeable for that. Thanks for allowing me to participate in the care of this patient. YARELIS LARSON MD CM:CONSTR:REPORT OF CONSULTATION [id number] 03/20/18 0001 interface
--- NOTE | ~2018-03-19 | EKG ---
[place], [place] ELECTROCARDIOGRAM REPORT NAME: MILDRED NEFF UNIT #: [id number] ROOM: [facility] DOCTOR: NEO BENTON MD,YARELIS BIRTHDATE: [birth year] DOS: 03/19/2018 ELECTROCARDIOGRAM Electrocardiogram done on 03/19/2018 at 05:01 a.m. Normal sinus rhythm noted. Heart rate 87 beats per minute. The electrocardiogram was noted normal. YARELIS LARSON MD CM:EKGRPT:ELECTROCARDIOGRAM REPORT [id number] YARELIS BENTON MD
[~2018-03-19 04:42] MED LIST changes: -ARNUITY ELLIP200 MCG INH; -Motrin,Rufen800 MG PO; -PERCOCET 5-3251 EACH PO; -SINGULAIR10 M1 PO; -TESSALON PERLE100 MG PO
[2018-03-19] MEDS ORDERED: SINGULAIR10 M1 PO (04:57)
[2018-03-19] MEDS ORDERED: ARNUITY ELLIP200 MCG INH (04:58)
[2018-03-19] MEDS ORDERED: TESSALON PERLE100 MG PO (04:58)
[2018-03-19 05:31] LABS: HEMATOCRIT 40.5 % (37.0-47.0); HEMOGLOBIN 12.3 g/dl (12.0-16.0); MEAN CORPUSCULAR HGB 26.7 pg (27.0-31.0); MEAN CORPUSCULAR HGB CONC 30.4 g/dl (33.0-37.0); MEAN PLATELET VOLUME 10.5 fl (9.6-12.3); PLATELET COUNT AUTOMATED 389 10*3/uL (130-400); RED CELL DISTRI WIDTH 15.4 % (0-14.5); WHITE BLOOD COUNT 14.6 10*3/uL (4.8-10.8)
[2018-03-19 05:53] LABS: ACT PARTIAL THROMBO TIME 21.9 SECONDS (20.8-31.5); INTERNATIONAL NORM RATIO 0.9 (2.0-3.5)
[2018-03-19 05:55] LABS: PLATELET SUFFICIENCY NORMAL (NORMAL); TOTAL CELLS COUNTED 100 #CELLS
[2018-03-19 06:00] LABS: ALBUMIN 3.3 gm/dl (3.1-4.5); ALKALINE PHOSPHATASE 97 U/L (45-117); BUN 10 mg/dl (7-24); CHLORIDE 103 mmol/L (98-107); CREATININE 0.84 mg/dL (0.55-1.02); POTASSIUM 4.6 mmol/L (3.5-5.1); SGOT/AST 15 IU/L (3-35); SGPT/ALT 21 U/L (12-78); SODIUM 141 mmol/L (136-145); TOTAL PROTEIN 7.3 gm/dL (6.4-8.2)
[2018-03-19 06:04] LABS: TROPONIN I < 0.015 ng/ml (<0.045)
== END 2018-03-19 20:49 | disposition short-term general hospital (02) | DRG 871 ==
LOC: ED 04:42 → 5E 06:04 → EDHOLD 06:04 → 5E 06:10
PROVIDERS: Student in an Organized Health Care Education/Training Program
DX: A41.9 Sepsis, unspecified organism (principal); J18.9 Pneumonia, unspecified organism; J96.01 Acute respiratory failure with hypoxia; E66.01 Morbid (severe) obesity due to excess calories; R65.20 Severe sepsis without septic shock; E55.9 Vitamin D deficiency, unspecified; K21.9 Gastro-esophageal reflux disease without esophagitis; J45.901 Unspecified asthma with (acute) exacerbation; E11.65 Type 2 diabetes mellitus with hyperglycemia; Z68.43 Body mass index [BMI] 50.0-59.9, adult; Z88.0 Allergy status to penicillin; Z79.899 Other long term (current) drug therapy; Z98.51 Tubal ligation status; Z90.49 Acquired absence of other specified parts of digestive tract; Z87.891 Personal history of nicotine dependence; Z83.3 Family history of diabetes mellitus; Z82.49 Family history of ischemic heart disease and other diseases of the circulatory system

== ENCOUNTER → 2018-03-27 | Outpatient (CLI) | payer OTHER ==
[~2018-03-27] MED LIST changes: +ARNUITY ELLIP200 MCG INH; +Motrin,Rufen800 MG PO; +PERCOCET 5-3251 EACH PO; +SINGULAIR10 M1 PO; +TESSALON PERLE100 MG PO
== END | disposition home or self-care (01) ==
LOC: RESCLI 04:33
DX: E11.9 Type 2 diabetes mellitus without complications (principal); K21.9 Gastro-esophageal reflux disease without esophagitis; J45.909 Unspecified asthma, uncomplicated; E66.01 Morbid (severe) obesity due to excess calories; E55.9 Vitamin D deficiency, unspecified; R00.0 Tachycardia, unspecified; Z88.0 Allergy status to penicillin

== ENCOUNTER 2018-04-13 23:49 | Emergency (ER) | payer OTHER ==
[~2018-04-13 23:49] MED LIST changes: -Motrin,Rufen800 MG PO; -PERCOCET 5-3251 EACH PO
[2018-04-14] MEDS ORDERED: OMNICEF300 MG PO (00:06)
[2018-04-15] MEDS ORDERED: PERCOCET 5-3251 EACH PO (13:01)
[2018-04-15] MEDS ORDERED: Motrin,Rufen800 MG PO (13:04)
== END 2018-04-14 00:10 | disposition home or self-care (01) ==
LOC: ED 23:49
DX: H60.92 Unspecified otitis externa, left ear (principal); H65.91 Unspecified nonsuppurative otitis media, right ear; Z87.891 Personal history of nicotine dependence; Z98.51 Tubal ligation status; Z90.49 Acquired absence of other specified parts of digestive tract; Z79.899 Other long term (current) drug therapy; Z88.0 Allergy status to penicillin

== ENCOUNTER 2018-04-15 12:29 | Emergency (ER) | payer OTHER ==
[~2018-04-15] VITALS: Ht 167.6 cm
[2018-04-15] MEDS ORDERED: PERCOCET 5-3251 EACH PO (13:01)
[2018-04-15] MEDS ORDERED: Motrin,Rufen800 MG PO (13:04)
== END 2018-04-15 13:20 | disposition home or self-care (01) ==
LOC: ED 12:29
DX: H60.92 Unspecified otitis externa, left ear (principal); E11.9 Type 2 diabetes mellitus without complications; K21.9 Gastro-esophageal reflux disease without esophagitis; E66.01 Morbid (severe) obesity due to excess calories; J45.909 Unspecified asthma, uncomplicated; Z88.0 Allergy status to penicillin; Z79.899 Other long term (current) drug therapy; Z68.43 Body mass index [BMI] 50.0-59.9, adult; Z87.891 Personal history of nicotine dependence

== ENCOUNTER → 2018-04-24 | Outpatient (CLI) | payer OTHER ==
[~2018-04-24] MED LIST changes: +Motrin,Rufen800 MG PO; +PERCOCET 5-3251 EACH PO
[2018-04-27 21:02] LABS: ALTERNARIA ALTERNATA, IGE <0.10 kU/L (Class 0); AMERICAN ELM, IGE <0.10 kU/L (Class 0); ASPERGILLUS FUMIGATU, IGE <0.10 kU/L (Class 0); BERMUDA GRASS, IGE <0.10 kU/L (Class 0); BIRCH, COMMON SILVER IGE <0.10 kU/L (Class 0); CLADOSPORIUM HERBARU, IGE <0.10 kU/L (Class 0); D FARINAE MITE 2.44 kU/L (Class III); D PTERONYSSINUS 3.81 kU/L (Class III); DOG DANDER, IGE 0.29 kU/L (Class 0/I); IMMUNOGLOBULIN IgE 002170 614 IU/mL (0-100); MAPLE LEAF SYCAMORE, IGE <0.10 kU/L (Class 0); MAPLE/BOX ELDER, IGE <0.10 kU/L (Class 0); MOUSE URINE IGE <0.10 kU/L (Class 0); PENICILLIUM CHRYSOGENUM, IGE <0.10 kU/L (Class 0); ROUGH PIGWEED, IGE <0.10 kU/L (Class 0); SHEEP SORREL (DOCK), IGE <0.10 kU/L (Class 0); SHORT RAGWEED, IGE 0.22 kU/L (Class 0/I); TIMOTHY, IGE <0.10 kU/L (Class 0); WALNUT TREE, IGE <0.10 kU/L (Class 0); WHITE ASH, IGE <0.10 kU/L (Class 0); WHITE MULBERRY, IGE <0.10 kU/L (Class 0); WHITE OAK, IGE <0.10 kU/L (Class 0)
== END | disposition home or self-care (01) ==
LOC: RESCLI 03:48
PROVIDERS: Family Medicine
DX: E11.9 Type 2 diabetes mellitus without complications (principal); K21.9 Gastro-esophageal reflux disease without esophagitis; E66.01 Morbid (severe) obesity due to excess calories; E55.9 Vitamin D deficiency, unspecified; J30.2 Other seasonal allergic rhinitis; F17.200 Nicotine dependence, unspecified, uncomplicated; Z79.899 Other long term (current) drug therapy; Z90.49 Acquired absence of other specified parts of digestive tract; Z88.0 Allergy status to penicillin

== ENCOUNTER → 2018-10-26 | Outpatient (CLI) | payer OTHER ==
[~2018-10-26] MED LIST changes: +CLARITIN10 MG PO; +FLONASE ALLERG9.9 ML NAS; +LEVAQUIN750 M1 PO; +NAPROSYN500 MG PO; +PREDNISONE50 MG PO; +ZOFRAN4 MG PO
== END | disposition home or self-care (01) ==
LOC: RESCLI 13:04
DX: J45.901 Unspecified asthma with (acute) exacerbation (principal); J06.9 Acute upper respiratory infection, unspecified; R68.89 Other general symptoms and signs; R50.81 Fever presenting with conditions classified elsewhere; R00.0 Tachycardia, unspecified; A41.9 Sepsis, unspecified organism; E66.01 Morbid (severe) obesity due to excess calories; E11.9 Type 2 diabetes mellitus without complications; F17.210 Nicotine dependence, cigarettes, uncomplicated; Z88.0 Allergy status to penicillin; Z90.49 Acquired absence of other specified parts of digestive tract; Z79.899 Other long term (current) drug therapy

== ENCOUNTER → 2018-10-30 | Outpatient (CLI) | payer OTHER ==
[~2018-10-30] MED LIST changes: -CLARITIN10 MG PO; -FLONASE ALLERG9.9 ML NAS; -ZOFRAN4 MG PO
== END | disposition home or self-care (01) ==
LOC: RAD 08:15
DX: J40 Bronchitis, not specified as acute or chronic (principal); R06.02 Shortness of breath; R05 Cough; R09.89 Other specified symptoms and signs involving the circulatory and respiratory systems; Z87.891 Personal history of nicotine dependence

== ENCOUNTER → 2018-11-16 | Outpatient (CLI) | payer OTHER ==
[~2018-11-16] MED LIST changes: +CLARITIN10 MG PO; +FLONASE ALLERG9.9 ML NAS; +ZOFRAN4 MG PO
== END | disposition home or self-care (01) ==
LOC: RESCLI 11:20
DX: J45.909 Unspecified asthma, uncomplicated (principal); K21.9 Gastro-esophageal reflux disease without esophagitis; E11.9 Type 2 diabetes mellitus without complications; E66.01 Morbid (severe) obesity due to excess calories; R00.0 Tachycardia, unspecified; S83.91XA Sprain of unspecified site of right knee, initial encounter; X58.XXXA Exposure to other specified factors, initial encounter; Y93.89 Activity, other specified; Y92.89 Other specified places as the place of occurrence of the external cause; Y99.8 Other external cause status; Z79.899 Other long term (current) drug therapy; Z90.49 Acquired absence of other specified parts of digestive tract; Z88.0 Allergy status to penicillin

== ENCOUNTER → 2018-12-11 | Outpatient (CLI) | payer OTHER | END | disposition home or self-care (01) | LOC: RAD 11:25 | DX: M17.11 Unilateral primary osteoarthritis, right knee (principal) ==

== ENCOUNTER → 2018-12-13 | Outpatient (CLI) | payer OTHER | END | disposition home or self-care (01) | LOC: MRI 03:13 | DX: S83.411A Sprain of medial collateral ligament of right knee, initial encounter (principal); S83.231A Complex tear of medial meniscus, current injury, right knee, initial encounter; M25.861 Other specified joint disorders, right knee; X58.XXXA Exposure to other specified factors, initial encounter; Y93.89 Activity, other specified; Y92.89 Other specified places as the place of occurrence of the external cause; Y99.8 Other external cause status ==

== ENCOUNTER → 2019-01-09 | Outpatient (CLI) | payer OTHER ==
[2019-01-09 14:52] LABS: BASO # 0.1 10*3/uL (0.0-0.1); BASO % 0.6 % (0.0-1.0); EOS # 0.8 10*3/uL (0.0-0.4); EOS % 9.9 % (1.0-4.0); HEMATOCRIT 46.7 % (37.0-47.0); HEMOGLOBIN 15.6 g/dl (12.0-16.0); LYMPH # 2.5 10*3/uL (1.3-4.4); LYMPH % 31.5 % (27.0-41.0); MEAN CELL VOLUME 89.1 fl (81.0-99.0); MEAN CORPUSCULAR HGB 29.8 pg (27.0-31.0); MEAN CORPUSCULAR HGB CONC 33.4 g/dl (33.0-37.0); MEAN PLATELET VOLUME 11.2 fl (9.6-12.3); MONO # 0.5 10*3/uL (0.1-1.0); MONO % 5.9 % (3.0-9.0); NEUT % 51.8 % (47.0-73.0); PLATELET COUNT AUTOMATED 299 10*3/uL (130-400); RED BLOOD COUNT 5.24 10*6/uL (4.10-5.10); RED CELL DISTRI WIDTH 12.7 % (0-14.5); WHITE BLOOD COUNT 7.8 10*3/uL (4.8-10.8)
== END | disposition home or self-care (01) ==
LOC: LAB 14:09
PROVIDERS: Orthopaedic Surgery
DX: Z01.818 Encounter for other preprocedural examination (principal)

== ENCOUNTER → 2019-03-12 | Outpatient (CLI) | payer OTHER | END | disposition home or self-care (01) | LOC: RESCLI 10:42 | DX: I10 Essential (primary) hypertension (principal); M25.561 Pain in right knee; E11.9 Type 2 diabetes mellitus without complications; E66.01 Morbid (severe) obesity due to excess calories; Z87.891 Personal history of nicotine dependence; Z79.899 Other long term (current) drug therapy ==

== ENCOUNTER → 2019-08-27 | Outpatient (CLI) | payer OTHER | LOC: RESCLI 09:18 | DX: Z23 Encounter for immunization (principal) ==

== ENCOUNTER → 2019-08-29 | Outpatient (CLI) | payer OTHER ==
[2019-08-29 09:38] LABS: CHOLESTEROL 213 mg/dL (<200); HDL CHOLESTEROL 52 mg/dl (40-60); LDL CHOLESTEROL 104 mg/dL (9-159); TRIGLYCERIDES 287 mg/dl (<150); VLDL CHOLESTEROL 57 mg/dL (6-40)
== END | disposition home or self-care (01) ==
LOC: LAB 00:11
PROVIDERS: Internal Medicine Nephrology
DX: Z79.899 Other long term (current) drug therapy (principal)

== ENCOUNTER → 2020-04-23 | Outpatient (CLI) | payer OTHER ==
[2020-04-23 14:43] LABS: ALBUMIN 3.5 gm/dl (3.1-4.5); ALKALINE PHOSPHATASE 108 U/L (45-117); BUN 18 mg/dl (7-24); CHLORIDE 108 mmol/L (98-107); CREATININE 0.71 mg/dL (0.55-1.02); POTASSIUM 4.2 mmol/L (3.5-5.1); SGOT/AST 18 IU/L (3-35); SGPT/ALT 21 U/L (12-78); SODIUM 138 mmol/L (136-145); TOTAL PROTEIN 7.7 gm/dL (6.4-8.2)
== END | disposition home or self-care (01) ==
LOC: LAB 14:15
PROVIDERS: Student in an Organized Health Care Education/Training Program
DX: Z79.899 Other long term (current) drug therapy (principal)

== ENCOUNTER → 2020-04-30 | Outpatient (CLI) | payer OTHER | END | disposition home or self-care (01) | LOC: LAB 13:45 | DX: L03.90 Cellulitis, unspecified (principal) ==

== ENCOUNTER → 2020-05-13 | Outpatient (CLI) | payer OTHER ==
[2020-05-13 14:24] LABS: ALBUMIN 3.5 gm/dl (3.1-4.5); ALKALINE PHOSPHATASE 109 U/L (45-117); BUN 13 mg/dl (7-24); CHLORIDE 106 mmol/L (98-107); POTASSIUM 4.1 mmol/L (3.5-5.1); SGOT/AST 19 IU/L (3-35); SGPT/ALT 23 U/L (12-78); SODIUM 137 mmol/L (136-145); TOTAL PROTEIN 7.6 gm/dL (6.4-8.2)
== END | disposition home or self-care (01) ==
LOC: LAB 13:38
PROVIDERS: Student in an Organized Health Care Education/Training Program
DX: B35.1 Tinea unguium (principal)

== ENCOUNTER → 2020-08-21 | Outpatient (CLI) | payer OTHER ==
[2020-08-21 13:05] LABS: CHOLESTEROL 188 mg/dL (<200); HDL CHOLESTEROL 55 mg/dl (40-60); LDL CHOLESTEROL 71 mg/dL (9-159); TRIGLYCERIDES 312 mg/dl (<150); VLDL CHOLESTEROL 62 mg/dL (6-40)
== END | disposition home or self-care (01) ==
LOC: LAB 01:50
PROVIDERS: ATTEND Internal Medicine
DX: Z79.899 Other long term (current) drug therapy (principal)

== ENCOUNTER 2020-09-03 | Emergency (ER) | payer OTHER ==
[~2020-09-03] VITALS: Wt 147.4 kg
[2020-09-03] MEDS ORDERED: PERCOCET 5-3251 EACH PO (02:47)
== END 2020-09-03 03:05 | disposition home or self-care (01) ==
LOC: ED
DX: S86.911A Strain of unspecified muscle(s) and tendon(s) at lower leg level, right leg, initial encounter (principal); M25.461 Effusion, right knee; M76.892 Other specified enthesopathies of left lower limb, excluding foot; Z88.0 Allergy status to penicillin; Z88.8 Allergy status to other drugs, medicaments and biological substances; Z79.899 Other long term (current) drug therapy; X58.XXXA Exposure to other specified factors, initial encounter; Y93.89 Activity, other specified; Y92.89 Other specified places as the place of occurrence of the external cause; Y99.8 Other external cause status

== ENCOUNTER → 2020-09-11 | Outpatient (CLI) | payer OTHER | END | disposition home or self-care (01) | LOC: RESCLI 13:29 | PROVIDERS: ATTEND Family Medicine | DX: M25.561 Pain in right knee (principal); I10 Essential (primary) hypertension; K21.9 Gastro-esophageal reflux disease without esophagitis; E55.9 Vitamin D deficiency, unspecified; J45.909 Unspecified asthma, uncomplicated; Z90.49 Acquired absence of other specified parts of digestive tract; Z87.891 Personal history of nicotine dependence; Z98.890 Other specified postprocedural states ==

== ENCOUNTER → 2020-09-16 | Outpatient (CLI) | payer OTHER | END | disposition home or self-care (01) | LOC: MRI 00:13 | PROVIDERS: ATTEND Social Worker Clinical | DX: S83.511A Sprain of anterior cruciate ligament of right knee, initial encounter (principal); M25.461 Effusion, right knee; S83.241A Other tear of medial meniscus, current injury, right knee, initial encounter; M17.11 Unilateral primary osteoarthritis, right knee; M94.261 Chondromalacia, right knee; X58.XXXA Exposure to other specified factors, initial encounter; Y93.89 Activity, other specified; Y92.89 Other specified places as the place of occurrence of the external cause; Y99.8 Other external cause status ==

== ENCOUNTER → 2020-10-26 | Outpatient (CLI) | payer OTHER ==
[2020-10-26 08:14] LABS: BASO # 0.1 10*3/uL (0.0-0.1); BASO % 0.7 % (0.0-1.0); EOS # 0.3 10*3/uL (0.0-0.4); EOS % 3.5 % (1.0-4.0); HEMATOCRIT 44.6 % (37.0-47.0); LYMPH # 1.9 10*3/uL (1.3-4.4); LYMPH % 22.9 % (27.0-41.0); MEAN CELL VOLUME 87.3 fl (81.0-99.0); MEAN CORPUSCULAR HGB CONC 30.9 g/dl (33.0-37.0); MEAN PLATELET VOLUME 10.5 fl (9.6-12.3); MONO # 0.5 10*3/uL (0.1-1.0); MONO % 6.3 % (3.0-9.0); NEUT # 5.5 10*3/uL (2.3-7.9); PLATELET COUNT AUTOMATED 360 10*3/uL (130-400); RED BLOOD COUNT 5.11 10*6/uL (4.10-5.10); RED CELL DISTRI WIDTH 13.7 % (0-14.5); WHITE BLOOD COUNT 8.3 10*3/uL (4.8-10.8)
[2020-10-26 08:46] LABS: ALBUMIN 3.3 gm/dl (3.1-4.5); ALKALINE PHOSPHATASE 97 U/L (45-117); BILIRUBIN, DIRECT 0.1 mg/dL (0.0-0.2); BUN 16 mg/dl (7-24); CHLORIDE 107 mmol/L (98-107); CHOLESTEROL 198 mg/dL (<200); HDL CHOLESTEROL 57 mg/dl (40-60); IRON 47 ug/dL (50-170); LDL CHOLESTEROL 107 mg/dL (9-159); POTASSIUM 4.3 mmol/L (3.5-5.1); SGOT/AST 15 IU/L (3-35); SGPT/ALT 20 U/L (12-78); SODIUM 141 mmol/L (136-145); TOTAL IRON BINDING CAPACITY 476 ug/dl (250-450); TOTAL PROTEIN 7.3 gm/dL (6.4-8.2); TRIGLYCERIDES 171 mg/dl (<150); VLDL CHOLESTEROL 34 mg/dL (6-40)
[2020-10-26 10:03] LABS: FERRITIN 22.6 ng/mL (10.0-291.0); VITAMIN D, 25-HYDROXY 17.2 ng/mL (30-100)
== END | disposition home or self-care (01) ==
LOC: LAB 00:17
PROVIDERS: ATTEND Internal Medicine
DX: E55.9 Vitamin D deficiency, unspecified (principal); Z79.899 Other long term (current) drug therapy

== ENCOUNTER → 2021-02-17 | Outpatient (CLI) | payer OTHER ==
[2021-02-17 10:07] LABS: ALBUMIN 3.8 gm/dl (3.1-4.5); ALKALINE PHOSPHATASE 78 U/L (45-117); BUN 14 mg/dl (7-24); CHLORIDE 108 mmol/L (98-107); CREATININE 0.75 mg/dL (0.55-1.02); POTASSIUM 4.1 mmol/L (3.5-5.1); SGOT/AST 31 IU/L (3-35); SGPT/ALT 47 U/L (12-78); SODIUM 140 mmol/L (136-145); TOTAL PROTEIN 7.6 gm/dL (6.4-8.2)
== END | disposition home or self-care (01) ==
LOC: LAB 09:32
PROVIDERS: ATTEND Student in an Organized Health Care Education/Training Program
DX: Z79.899 Other long term (current) drug therapy (principal)

== ENCOUNTER → 2021-07-27 | Outpatient (CLI) | payer OTHER ==
[2021-07-27 06:14] LABS: BASO # 0.1 10*3/uL (0.0-0.1); EOS # 0.3 10*3/uL (0.0-0.4); HEMATOCRIT 40.9 % (37.0-47.0); LYMPH # 1.6 10*3/uL (1.3-4.4); LYMPH % 23.6 % (27.0-41.0); MEAN CELL VOLUME 88.7 fl (81.0-99.0); MEAN CORPUSCULAR HGB 28.6 pg (27.0-31.0); MEAN CORPUSCULAR HGB CONC 32.3 g/dl (33.0-37.0); MEAN PLATELET VOLUME 10.7 fl (9.6-12.3); MONO # 0.5 10*3/uL (0.1-1.0); MONO % 7.8 % (3.0-9.0); NEUT # 4.3 10*3/uL (2.3-7.9); NEUT % 62.3 % (47.0-73.0); PLATELET COUNT AUTOMATED 328 10*3/uL (130-400); RED BLOOD COUNT 4.61 10*6/uL (4.10-5.10); RED CELL DISTRI WIDTH 12.7 % (0-14.5); WHITE BLOOD COUNT 6.8 10*3/uL (4.8-10.8)
[2021-07-27 06:18] LABS: ALBUMIN 3.4 gm/dl (3.1-4.5); ALKALINE PHOSPHATASE 73 U/L (45-117); BUN 12 mg/dl (7-24); CHLORIDE 111 mmol/L (98-107); CHOLESTEROL 155 mg/dL (<200); CREATININE 0.55 mg/dL (0.55-1.02); IRON 73 ug/dL (50-170); POTASSIUM 3.9 mmol/L (3.5-5.1); SGOT/AST 13 IU/L (3-35); SGPT/ALT 16 U/L (12-78); SODIUM 142 mmol/L (136-145); TOTAL IRON BINDING CAPACITY 344 ug/dl (250-450); TOTAL PROTEIN 6.8 gm/dL (6.4-8.2); TRIGLYCERIDES 100 mg/dl (<150); URIC ACID 5.8 mg/dL (2.6-6.0)
[2021-07-27 06:22] LABS: LDL CHOLESTEROL 84 mg/dL (9-159); PREALBUMIN 20 mg/dl (20-40)
[2021-07-27 10:01] LABS: FERRITIN 19.4 ng/mL (10.0-291.0); PTH INTACT 31.5 pg/mL (18.5-88.0); VITAMIN D, 25-HYDROXY 34.8 ng/mL (30-100)
== END | disposition home or self-care (01) ==
LOC: LAB 00:16
PROVIDERS: ATTEND Internal Medicine
DX: E11.9 Type 2 diabetes mellitus without complications (principal); E55.9 Vitamin D deficiency, unspecified; E66.01 Morbid (severe) obesity due to excess calories; Z48.89 Encounter for other specified surgical aftercare; Z79.899 Other long term (current) drug therapy

== ENCOUNTER → 2021-07-29 | Outpatient (CLI) | payer OTHER | END | disposition home or self-care (01) | LOC: LAB 06:30 | PROVIDERS: ATTEND Internal Medicine | DX: Z48.89 Encounter for other specified surgical aftercare (principal); E11.9 Type 2 diabetes mellitus without complications; E66.01 Morbid (severe) obesity due to excess calories; E55.9 Vitamin D deficiency, unspecified; Z79.899 Other long term (current) drug therapy ==

== ENCOUNTER → 2021-08-11 | Outpatient (CLI) | payer OTHER | END | disposition home or self-care (01) | LOC: RESCLI 06:43 | PROVIDERS: ATTEND Internal Medicine | DX: L40.9 Psoriasis, unspecified (principal); J45.909 Unspecified asthma, uncomplicated; K21.9 Gastro-esophageal reflux disease without esophagitis; E55.9 Vitamin D deficiency, unspecified; Z79.899 Other long term (current) drug therapy; Z88.0 Allergy status to penicillin; Z88.8 Allergy status to other drugs, medicaments and biological substances; Z90.49 Acquired absence of other specified parts of digestive tract; Z98.890 Other specified postprocedural states ==

== ENCOUNTER → 2021-12-21 | Outpatient (CLI) | payer OTHER | END | disposition home or self-care (01) | LOC: RESCLI 10:39 | PROVIDERS: ATTEND Internal Medicine | DX: E66.01 Morbid (severe) obesity due to excess calories (principal); K21.9 Gastro-esophageal reflux disease without esophagitis; E55.9 Vitamin D deficiency, unspecified; E11.9 Type 2 diabetes mellitus without complications; J45.909 Unspecified asthma, uncomplicated; M17.11 Unilateral primary osteoarthritis, right knee; N92.0 Excessive and frequent menstruation with regular cycle; L40.9 Psoriasis, unspecified; Z79.899 Other long term (current) drug therapy; Z90.49 Acquired absence of other specified parts of digestive tract; Z98.890 Other specified postprocedural states ==

== ENCOUNTER → 2022-02-07 | Outpatient (CLI) | payer OTHER ==
[2022-02-07 09:16] LABS: BASO # 0.1 10*3/uL (0.0-0.1); BASO % 0.9 % (0.0-1.0); EOS # 0.3 10*3/uL (0.0-0.4); EOS % 3.6 % (1.0-4.0); HEMATOCRIT 38.8 % (37.0-47.0); LYMPH # 1.7 10*3/uL (1.3-4.4); MEAN CELL VOLUME 86.6 fl (81.0-99.0); MEAN CORPUSCULAR HGB 28.3 pg (27.0-31.0); MEAN CORPUSCULAR HGB CONC 32.7 g/dl (33.0-37.0); MEAN PLATELET VOLUME 10.1 fl (9.6-12.3); MONO # 0.7 10*3/uL (0.1-1.0); MONO % 7.8 % (3.0-9.0); NEUT # 5.9 10*3/uL (2.3-7.9); NEUT % 67.5 % (47.0-73.0); PLATELET COUNT AUTOMATED 343 10*3/uL (130-400); RED BLOOD COUNT 4.48 10*6/uL (4.10-5.10); RED CELL DISTRI WIDTH 12.6 % (0-14.5); WHITE BLOOD COUNT 8.7 10*3/uL (4.8-10.8)
[2022-02-07 10:17] LABS: FERRITIN 6.2 ng/mL (10.0-291.0); VITAMIN D, 25-HYDROXY 28.6 ng/mL (30-100)
== END | disposition home or self-care (01) ==
LOC: LAB 08:28
PROVIDERS: ATTEND Internal Medicine
DX: Z79.899 Other long term (current) drug therapy (principal)

== ENCOUNTER → 2022-02-08 | Outpatient (CLI) | payer OTHER ==
[2022-02-08 07:27] LABS: ALKALINE PHOSPHATASE 63 U/L (45-117); BUN 20 mg/dl (7-24); CHLORIDE 115 mmol/L (98-107); CHOLESTEROL 144 mg/dL (<200); CREATININE 0.56 mg/dL (0.55-1.02); LDL CHOLESTEROL 80 mg/dL (9-159); POTASSIUM 4.3 mmol/L (3.5-5.1); SGOT/AST 16 IU/L (3-35); SGPT/ALT 14 U/L (12-78); SODIUM 143 mmol/L (136-145); TOTAL PROTEIN 6.4 gm/dL (6.4-8.2); TRIGLYCERIDES 77 mg/dl (<150)
== END | disposition home or self-care (01) ==
LOC: LAB 00:48
PROVIDERS: ATTEND Internal Medicine
DX: Z79.899 Other long term (current) drug therapy (principal)

== ENCOUNTER 2022-08-13 13:40 | Emergency (ER) | payer OTHER ==
[~2022-08-13] VITALS: Ht 167.6 cm; Wt 104.3 kg
== END 2022-08-13 16:18 | disposition home or self-care (01) ==
LOC: ED 13:40
DX: S39.92XA Unspecified injury of lower back, initial encounter (principal); R51.9 Headache, unspecified; M54.2 Cervicalgia; Z88.0 Allergy status to penicillin; Z88.6 Allergy status to analgesic agent; Z88.1 Allergy status to other antibiotic agents; Z98.51 Tubal ligation status; Z90.49 Acquired absence of other specified parts of digestive tract; Z87.891 Personal history of nicotine dependence; W01.0XXA Fall on same level from slipping, tripping and stumbling without subsequent striking against object, initial encounter; Y93.89 Activity, other specified; Y92.89 Other specified places as the place of occurrence of the external cause; Y99.8 Other external cause status

== ENCOUNTER 2022-10-16 19:42 | Emergency (ER) | payer OTHER ==
[2022-10-16] MEDS ORDERED: KETOROLAC10 MG PO (19:45)
== END 2022-10-16 19:56 | disposition home or self-care (01) ==
LOC: ED 19:42
DX: M25.561 Pain in right knee (principal); Z88.0 Allergy status to penicillin; Z88.5 Allergy status to narcotic agent; Z88.6 Allergy status to analgesic agent; Z98.51 Tubal ligation status; Z90.49 Acquired absence of other specified parts of digestive tract; Z98.890 Other specified postprocedural states; Z87.891 Personal history of nicotine dependence; F10.90 Alcohol use, unspecified, uncomplicated

== ENCOUNTER → 2022-11-01 | Outpatient (CLI) | payer OTHER ==
[~2022-11-01] MED LIST changes: +KETOROLAC10 MG PO
== END | disposition home or self-care (01) ==
LOC: RAD 17:08
PROVIDERS: ATTEND Internal Medicine
DX: M17.11 Unilateral primary osteoarthritis, right knee (principal); M25.761 Osteophyte, right knee

== ENCOUNTER → 2023-01-31 | Outpatient (CLI) | payer OTHER ==
[2023-01-31 15:19] LABS: BASO % 0.2 % (0.0-1.0); EOS % 0.1 % (1.0-4.0); LYMPH # 1.1 10*3/uL (1.3-4.4); LYMPH % 7.3 % (27.0-41.0); MEAN CELL VOLUME 85.7 fl (81.0-99.0); MEAN CORPUSCULAR HGB 27.9 pg (27.0-31.0); MEAN CORPUSCULAR HGB CONC 32.6 g/dl (33.0-37.0); MEAN PLATELET VOLUME 10.2 fl (9.6-12.3); MONO # 0.8 10*3/uL (0.1-1.0); MONO % 5.6 % (3.0-9.0); NEUT % 86.5 % (47.0-73.0); PLATELET COUNT AUTOMATED 341 10*3/uL (130-400); RED BLOOD COUNT 4.55 10*6/uL (4.10-5.10); RED CELL DISTRI WIDTH 13.2 % (0-14.5)
[2023-01-31 16:02] LABS: ALKALINE PHOSPHATASE 68 U/L (46-116); BUN 17 mg/dl (9-23); CHLORIDE 107 mmol/L (98-107); POTASSIUM 3.8 mmol/L (3.4-5.1); SGPT/ALT 9 U/L (10-49); TOTAL PROTEIN 7.3 gm/dL (6.0-8.0)
[2023-01-31 16:07] LABS: VITAMIN D, 25-HYDROXY 45.7 ng/mL (30-100)
[2023-02-02 07:07] LABS: ZINC, PLASMA 68 ug/dL (44-115)
== END | disposition home or self-care (01) ==
LOC: LAB 14:57
PROVIDERS: ATTEND Internal Medicine
DX: Z48.89 Encounter for other specified surgical aftercare (principal)

== ENCOUNTER → 2023-08-25 | Outpatient (CLI) | payer OTHER ==
[2023-08-25 15:56] LABS: BASO # 0.1 10*3/uL (0.0-0.1); BASO % 1.1 % (0.0-1.0); EOS # 0.3 10*3/uL (0.0-0.4); EOS % 4.9 % (1.0-4.0); HEMATOCRIT 37.5 % (37.0-47.0); LYMPH # 1.4 10*3/uL (1.3-4.4); LYMPH % 22.7 % (27.0-41.0); MEAN CELL VOLUME 85.4 fl (81.0-99.0); MEAN CORPUSCULAR HGB 28.5 pg (27.0-31.0); MEAN CORPUSCULAR HGB CONC 33.3 g/dl (33.0-37.0); MEAN PLATELET VOLUME 10.3 fl (9.6-12.3); MONO # 0.5 10*3/uL (0.1-1.0); MONO % 8.4 % (3.0-9.0); NEUT # 3.9 10*3/uL (2.3-7.9); NEUT % 62.7 % (47.0-73.0); PLATELET COUNT AUTOMATED 293 10*3/uL (130-400); RED BLOOD COUNT 4.39 10*6/uL (4.10-5.10); RED CELL DISTRI WIDTH 12.9 % (0-14.5); WHITE BLOOD COUNT 6.2 10*3/uL (4.8-10.8)
[2023-08-25 16:14] LABS: ALKALINE PHOSPHATASE 67 U/L (46-116); BUN 17 mg/dl (9-23); CHLORIDE 111 mmol/L (98-107); CHOLESTEROL 175 mg/dL (<200); LDL CHOLESTEROL 74 mg/dL (9-159); POTASSIUM 3.7 mmol/L (3.4-5.1); TOTAL PROTEIN 6.4 gm/dL (6.0-8.0); TRIGLYCERIDES 208 mg/dl (<150); URIC ACID 5.3 mg/dL (3.1-7.8)
[2023-08-25 16:18] LABS: SGPT/ALT < 7 U/L (5-49); VITAMIN D, 25-HYDROXY 35.3 ng/mL (30-100)
== END | disposition home or self-care (01) ==
LOC: LAB 14:44
PROVIDERS: ATTEND Internal Medicine
DX: Z48.89 Encounter for other specified surgical aftercare (principal); M47.812 Spondylosis without myelopathy or radiculopathy, cervical region; M54.2 Cervicalgia; Z79.899 Other long term (current) drug therapy

== ENCOUNTER → 2024-03-08 | Outpatient (CLI) | payer OTHER | END | disposition home or self-care (01) | LOC: RESCLI 13:33 | PROVIDERS: ATTEND Internal Medicine | DX: E66.01 Morbid (severe) obesity due to excess calories (principal); E11.9 Type 2 diabetes mellitus without complications; J45.909 Unspecified asthma, uncomplicated; M19.90 Unspecified osteoarthritis, unspecified site; Z98.890 Other specified postprocedural states; Z90.49 Acquired absence of other specified parts of digestive tract; Z88.0 Allergy status to penicillin; Z88.8 Allergy status to other drugs, medicaments and biological substances; Z79.899 Other long term (current) drug therapy ==

== ENCOUNTER 2024-06-11 11:41 | Emergency (ER) | payer OTHER ==
[~2024-06-11] VITALS: Ht 167.6 cm; Wt 104.3 kg
[2024-06-11] MEDS ORDERED: Ketorolac Tromethamine 60 MG/2 ML VIAL IM ONE (11:55)
[2024-06-11] MEDS ORDERED: methylPREDNISolone sod succ 125 MG VIAL IM ONE (11:55)
[2024-06-11] MEDS ORDERED: TRAMADOL HCL50 MG PO (12:32)
[2024-06-11] MEDS ORDERED: PREDNISONE20 M1 PO (12:32)
== END 2024-06-11 12:38 | disposition home or self-care (01) ==
LOC: ED 11:41
DX: S89.92XA Unspecified injury of left lower leg, initial encounter (principal); K21.9 Gastro-esophageal reflux disease without esophagitis; J45.909 Unspecified asthma, uncomplicated; Z88.0 Allergy status to penicillin; Z88.1 Allergy status to other antibiotic agents; Z88.6 Allergy status to analgesic agent; Z88.8 Allergy status to other drugs, medicaments and biological substances; Z98.51 Tubal ligation status; Z90.49 Acquired absence of other specified parts of digestive tract; Z98.890 Other specified postprocedural states; Z87.891 Personal history of nicotine dependence; X58.XXXA Exposure to other specified factors, initial encounter; Y93.89 Activity, other specified; Y92.89 Other specified places as the place of occurrence of the external cause; Y99.8 Other external cause status

== ENCOUNTER → 2025-03-24 | Outpatient (CLI) | payer BC ==
[~2025-03-24] MED LIST changes: +DULE1ARO1 INH; +LEVOFLOXACIN750 M2 PO; +MEDROL DOSEPAK4 MG PO; +PREDNISONE20 M1 PO; +TRAMADOL HCL50 MG PO
== END | disposition home or self-care (01) ==
LOC: RESCLI 13:25
PROVIDERS: ATTEND Internal Medicine
DX: J18.9 Pneumonia, unspecified organism (principal); J45.909 Unspecified asthma, uncomplicated; M25.561 Pain in right knee; Z79.899 Other long term (current) drug therapy; Z88.8 Allergy status to other drugs, medicaments and biological substances; Z98.890 Other specified postprocedural states

== ENCOUNTER 2025-04-09 16:57 | Emergency (ER) | payer BC ==
[~2025-04-09] VITALS: Ht 167.6 cm; Wt 108.9 kg
[~2025-04-09 16:57] MED LIST changes: -DULE1ARO1 INH; -LEVOFLOXACIN750 M2 PO; -MEDROL DOSEPAK4 MG PO
[2025-04-09] MEDS ORDERED: Albuterol Sulf/Ipratropium 3 ML VIAL NEB ONE (17:20)
[2025-04-09 17:35] LABS: BASO # 0.2 10*3/uL (0.0-0.1); BASO % 1.3 % (0.0-1.0); EOS # 1.0 10*3/uL (0.0-0.4); EOS % 9.3 % (1.0-4.0); MEAN CELL VOLUME 85.6 fl (81.0-99.0); MEAN CORPUSCULAR HGB 26.8 pg (27.0-31.0); MEAN PLATELET VOLUME 9.5 fl (9.6-12.3); MONO # 0.9 10*3/uL (0.1-1.0); MONO % 7.6 % (3.0-9.0); NEUT # 6.8 10*3/uL (2.3-7.9); NEUT % 60.6 % (47.0-73.0); NUCLEATED RED BLOOD CELL 0.0 % (0.0-0.0); NUCLEATED RED BLOOD CELL 0.0 10*3/uL (0.0-0.0); PLATELET COUNT AUTOMATED 335 10*3/uL (130-400); RED CELL DISTRI WIDTH 13.5 % (0-14.5)
[2025-04-09 17:52] LABS: BUN 11 mg/dl (9-23)
[2025-04-09] MEDS ORDERED: LEVOFLOXACIN 150 ML IV ONE (18:00)
[2025-04-09] MEDS ORDERED: MEDROL DOSEPAK4 MG PO (19:03)
[2025-04-12] MEDS ORDERED: LEVOFLOXACIN750 M2 PO (12:51)
[2025-04-12] MEDS ORDERED: DULE1ARO1 INH (12:51)
[2025-04-12] MEDS ORDERED: PREDNISONE10 MG PO (12:51)
== END 2025-04-09 19:39 | disposition home or self-care (01) ==
LOC: ED 16:57
PROVIDERS: Internal Medicine
DX: J18.9 Pneumonia, unspecified organism (principal); Z88.0 Allergy status to penicillin; Z88.6 Allergy status to analgesic agent; Z88.1 Allergy status to other antibiotic agents; Z79.899 Other long term (current) drug therapy; Z90.49 Acquired absence of other specified parts of digestive tract; Z87.891 Personal history of nicotine dependence; Z53.9 Procedure and treatment not carried out, unspecified reason